=== PATIENT | female | born 1985 | race Caucasian/White ===

== ENCOUNTER 2016-11-24 22:43 | Emergency (ER) | payer OTHER ==
[2016-11-24 21:01] LABS: INFLUENZA A NEG (NEG); INFLUENZA B NEG (NEG)
[~2016-11-24 22:43] MED LIST: A/T/S 2% GEL30 GM OP; ALBUTEROL17 GM; ALBUTEROL17 GM INH; AMOXICILLIN PO; AMOXICILLIN500 M1 PO; BACTRIM DS TABL1 TAB PO; BENZONATATE; BROMPHED; CLEOCIN T60 GM; DOXYCYCLINE HY100 M1 PO; DOXYCYCLINE PO; FLAGYL PO; FLEXERIL10 MG PO; IBUPROFEN200 M1; IBUPROFEN800 MG PO; LIDODERM30 EA TOP; NO MEDICATIONS; PEN-VEE K PO; PHENERGAN25 MG PO; PREDNISONE PO; PSEUDOPHED PO; TYLENOL #3 PO; VOLTAREN50 MG PO; VOLTAREN75 MG PO; ZITHROMAX PO
== END 2016-11-24 22:50 | disposition home or self-care (01) ==
LOC: CFTX 22:43
PROVIDERS: Emergency Medicine
DX: J40 Bronchitis, not specified as acute or chronic (principal); F17.200 Nicotine dependence, unspecified, uncomplicated
CPT/HCPCS: 87651; 87804; 99283